=== PATIENT | female | born 1990 | race Caucasian/White ===

== ENCOUNTER 2020-12-01 09:08 | Emergency (ER) | payer OTHER ==
[~2020-12-01] VITALS: Ht 154.9 cm; Wt 61.6 kg
--- NOTE | 2020-12-01 09:23 | PHYS DOC ---
Adult General Chief Complaint Chief Complaint: CHEST PAIN HPI HPI Patient is a 30-year-old female presenting for palpitations. Reports onset was 5 days ago without any known inciting event, exposure or ingestion. Nothing known makes better or worse. Denies being in any pain, just reports feeling uneasy. States episodes are intermittent and wax and wane in duration, sometimes she feels palpitations for hours, other times it lasts a few minutes only. Reports experiencing episode earlier this morning which caused her to be nauseous and lightheaded but denies falling or vision changes. She has no significant medical history, no prior cardiac history, no family history of cardiac abnormalities, has never passed out with activity, no tobacco, occasional alcohol use, no illicit drug abuse. No long distance travel. Admits her spouse recently relocated to [facility] with the [employer], she is here with her young children trying to pack up the house prior to moving later this week and is subsequently had more stress than usual. Review of Systems Review of Systems Fourteen body systems of review of systems have been reviewed. See HPI for pertinent positives and negative responses, other hebert all other systems are negative, non-pertinent or non-contributory Physical Exam Physical Exam Constitutional: Well developed, well nourished, no acute distress, non-toxic anu earance. HENT: Normocephalic, atraumatic, bilateral external ears normal, oropharynx moist, no oral exudates, nose normal. Eyes: PERRLA, EOMI, conjunctiva normal, no discharge. Neck: Normal range of motion, no tenderness, supple, no stridor. Cardiovascular: Heart rate regular, sinus rhythm, no murmurs rubs or gallops Lungs & Thorax: Bilateral breath sounds clear to auscultation Abdomen: Bowel sounds normal, soft, no tenderness, no masses, no pulsatile masses. Nonsurgical abdomen, no peritoneal signs Skin: Warm, dry, no erythema, no rash. Back: No tenderness, no CVA tenderness. Extremities: No tenderness, no cyanosis, no clubbing, ROM intact, no edema. Neurologic: Alert and oriented X 3, grossly normal motor & sensory function, no focal deficits noted. Psychologic: Anxious affect and mood Current Patient Data Vital Signs Vital Signs Date Time Temp Pulse Resp B/P (MAP) Pulse Ox O2 Delivery O2 Flow Rate FiO2 12/01/20 09:24 98.1 85 22 142/79 (100) 99 Room Air Vital Signs Date Time Temp Pulse Resp B/P (MAP) Pulse Ox O2 Delivery O2 Flow Rate FiO2 12/01/20 09:24 98.1 85 22 142/79 (100) 99 Room Air Lab Results Laboratory Tests Test 12/01/20 09:37 Glucose (Fingerstick) 100 mg/dL Current Medications Medications (Trade) Dose Ordered Sig/Shellie Route PRN Reason Start Time Stop Time Status Last Admin Dose Admin Aspirin (Aspirin Chewable) 162 mg 1X ONCE PO 12/01/20 09:45 12/01/20 09:46 DC Hydroxyzine HCl (Atarax) 25 mg PRN Q6HRS PRN PO ITCHING 12/01/20 09:45 EKG EKG EKG ordered and interpreted by myself at 0922 hrs. as sinus rhythm at 92 bpm, unremarkable intervals, no axis deviation, no acute ischemic findings, no STEMI Radiology/Procedures Radiology/Procedures XR CHEST 1V INDICATION: chest pain COMPARISON STUDY: None. FINDINGS: Lungs: Normal lung volume. No pulmonary mass or consolidation. The tracheobronchial tree and hilar structures are normal. Pleura: No pleural effusion or pneumothorax. Heart and Mediastinum: The cardiomediastinal silhouette is normal. The great vessels of the thorax are normal. Bones and Soft Tissues: The bones and soft tissues are within normal limits. IMPRESSION: No acute cardiopulmonary process. Electronically signed by: Johnathon Noe MD (12/01/2020 9:50 AM) [id number] Heart Score C/O Chest Pain: No HEART Score for Chest Pain: HEART Score for Chest Pain Response (Comments) Value History Slighlty/Non-Suspicious 0 ECG Normal 0 Age < 45 0 Risk Factors No Risk Factors 0 Troponin < Normal Limit 0 Total 0 Risk Factors: Risk Factors: DM, Current or recent (<one month) smoker, HTN, HLP, family history of CAD, obesity. Risk Scores: Risk Factors: DM, Current or recent (<one month) smoker, HTN, HLP, family history of CAD, obesity. Course & Med Decision Making Course & Med Decision Making Discussed with the patient all findings and diagnostic testing. I discussed most likely diagnosis of anxiety/panic attack. I disclosed heart score, PERC score, and little indication for further diagnostic work-up in ER setting and/or need for hospitalization. Continued supportive care, self-care, deep breathing exercises advised. Despite patient is low risk for adverse cardiac events, I stressed need for close outpatient follow-up to review today's ER visit. Strict return precautions were also discussed at length with good understanding by patient. Patient voiced understanding and agreement with the plan. Patient knows to come back for repeat evaluation if concerning signs or symptoms present prior to outpatient follow-up. Hemodynamically stable, ambulatory and well-appearing at time of disposition. Dragon Disclaimer Dragon Disclaimer This electronic medical record was generated, in whole or in part, using a voice recognition dictation system. PERC Rule for PE PERC Rule for PE Response (Comments) Value Age > 50: No 0 HR > 100: No 0 Sa02 on room air <95%: No 0 Unilateral leg swelling: No 0 Hemoptysis: No 0 Recent surgery or trauma: No 0 Prior PE or DVT: No 0 Hormone use: No 0 Total 0 Departure Departure: Impression: Primary Impression: Anxiety about health Additional Impression: Palpitations Disposition: HOME / SELF CARE / HOMELESS Condition: STABLE Referrals: MEGAN KIM (PCP) Patient Instructions: Anxiety and Panic Attacks, Palpitations Additional Instructions: You were seen for palpitations. Your workup did not show any acute abnormaliti es today, but does not indicate that you do not have underlying cardiovascular disease. 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 You should return to the ED if you develop worsening chest pain, shortness of breath, fever, abnormal sweating, leg swelling, or any other new or concerning symptoms. It was a pleasure to take care of you and I wish you the best going forward Problem Qualifiers ANTHONY ARAUJO DO Dec 01, 2020 09:23
[2020-12-01 09:24] VITALS: BP 142/79
[2020-12-01] MEDS ORDERED: hydrOXYzine HCL 25 MG TABLET PO PRN (09:45)
[2020-12-01] MEDS ORDERED: ASPIRIN CHEWABLE 81 MG TABLET. PO ONE (09:45)
--- NOTE | 2020-12-01 09:52 | RAD ---
XR CHEST 1V INDICATION: chest pain COMPARISON STUDY: None. FINDINGS: Lungs: Normal lung volume. No pulmonary mass or consolidation. The tracheobronchial tree and hilar st ructures are normal. Pleura: No pleural effusion or pneumothorax. Heart and Mediastinum: The cardiomediastinal silhouette is normal. The great vessels of the thorax ar e normal. Bones and Soft Tissues: The bones and soft tissues are within normal limits. IMPRESSION: No acute cardiopulmonary process. Electronically signed by: Johnathon Noe MD (12/01/2020 9:50 AM) [id number]
== END 2020-12-01 10:17 | disposition home or self-care (01) ==
LOC: ER 09:08
DX: R00.2 Palpitations (principal); F41.9 Anxiety disorder, unspecified
CPT/HCPCS: 71045; 82947; 99283-25